=== PATIENT | female | born 1955 | race Asian ===

== ENCOUNTER 2017-11-02 19:14 | Emergency (ER) | payer OTHER ==
[~2017-11-02] VITALS: Ht 149.9 cm; Wt 57.2 kg
[2017-11-02] MEDS ORDERED: Morphine Sulfate 4mg/ml Inj IVP ONE (19:15)
[2017-11-02] MEDS ORDERED: Isovue-300 100ml vial INJ PRN (19:15)
[2017-11-02] MEDS ORDERED: Isovue-370 150ml vial INJ PRN (19:15)
--- NOTE | 2017-11-02 19:27 | Emergency Room Report ---
History of Present Illness General Chief Complaint: Dyspnea/Respdistress Source: Patient, EMS Present Illness HPI History of breast cancer in remission reports left-sided chest pain left lower quadrant abdominal pain, reports both achy and moderate intensity, the chest pain is worse with taking deep breaths, she also reports sensation of nausea and vomiting one episode prior to arrival. Fevers, but does report severe fatigue. She has urinary complaints, diarrhea, leg swelling, leg pain, but she does admit that she has missed her insulin dose yesterday. She generally feels fatigued and no energy. She denies any recent bleeding, melanotic stools, vomiting blood. Allergies: Coded Allergies: No Known Allergies (Unverified , 11/02/17) Patient History Past Medical History: see triage record Last Menstrual Period: NA Reviewed Nursing Documentation: PMH: Agreed; PSxH: Agreed Nursing Documentation-PMH Past Medical History: No History, Except For Hx Hypertension: Yes Hx Diabetes: Yes Hx Cancer: Yes - breast Cx. Lumpectomy left side. Review of Systems All Other Systems: negative except mentioned in HPI Physical Exam Vital Signs Date Time Temp Pulse Resp B/P (MAP) Pulse Ox O2 Delivery O2 Flow Rate FiO2 11/02/17 19:07 98.5 81 20 149/77 96 Room Air 98.4 Sp02 EP Interpretation: reviewed, normal General Appearance: no apparent distress, alert, non-toxic Head: normocephalic Eyes: bilateral eye normal inspection, bilateral eye PERRL, bilateral eye EOMI ENT: normal ENT inspection, hearing grossly normal, normal pharynx, no angioedema, normal voice, moist mucus membranes Neck: normal inspection, full range of motion, supple, supple/symm/no masses Respiratory: chest non-tender, lungs clear, normal breath sounds, chest symmetrical, palpation of chest normal Cardiovascular #1: normal peripheral pulses, regular rate, rhythm Cardiovascular #2: 2+ radial (R), 2+ radial (L), 2+ dorsalis pedis (R), 2+ dorsalis pedis (L) Gastrointestinal: normal inspection, soft, no mass, non-distended, no guarding , no rebound, tenderness - Left lower quadrant tender Rectal: deferred Genitourinary: normal inspection, no CVA tenderness Musculoskeletal: back normal, gait/station normal, normal range of motion, non- tender, no calf tenderness Neurologic: alert, responsive, cuff slitter III-XII nml as tested, motor strength/tone normal, sensory intact, speech normal Psychiatric: judgement/insight normal, memory normal, mood/affect normal, no suicidal/homicidal ideation Skin: normal color, no rash, warm/dry, normal turgor Lymphatic: no adenopathy Medical Decision Making Diagnostic Impression: Primary Impression: Dyspnea Additional Impression: Chest pain ER Course Patient with signs and symptoms concerning for diverticulitis, also possibly PE given her breast cancer history and respirophasic nature of chest pain with shortness of breath. She was given IV fluids, Zofran, morphine. EKG does not reveal evidence for acute coronary syndrome. patient has never had a colonoscopy, but we will obtain a CT abd/pelvis to evaluate for diverticulitis also CT angio chest for possible PE. Labs are normal other than slightly low K+ level, which was given to patient as 40mEq PO KCl, but she is pending CT scans. Patient accepted in transfer to [facility] by Dr. Mo for chest pain evaluation, but then I was given info for Dr. Willis at [facility] and spoke to him, he agreed to take the patient in transfer. EKG Diagnostic Results EKG Time: 19:08 EP Interpretation: no st-t changes, no TWI's Rate: normal Rhythm: NSR ST Segments: no acute changes ASA given to the pt in ED: No Rhythm Strip Diag. Results Rhythm Strip Time: 19:26 EP Interpretation: yes Rate: 86 Rhythm: NSR, no PVC's, no ectopy Chest X-Ray Diagnostic Results Chest X-Ray Diagnostic Results : Chest X-Ray Ordered: Yes # of Views/Limited/Complete: 1 View Indication: Chest Pain EP Interpretation: Yes Interpretation: no consolidation, no effusion, no pneumothorax, no acute cardiopulmonary disease Impression: No acute disease Electronically Signed by: Michael Ogden MD CT/MRI/US Diagnostic Results CT/MRI/US Diagnostic Results #1: Imaging Test Ordered: cta chest CT/MRI/US Diagnostic Results #2: Imaging Test Ordered: ct abd/pelvis w/ iv contrast Last Vital Signs Date Time Temp Pulse Resp B/P (MAP) Pulse Ox O2 Delivery O2 Flow Rate FiO2 11/02/17 19:07 98.5 81 20 149/77 96 Room Air 98.4 Disposition: XFER SHT-TRM HOSP Admit Decision Time: 20:22 Condition: Stable Signed Out To: [facility] Nov 02, 2017 19:27
[2017-11-02 20:03] VITALS: BP 149/77
[2017-11-02 20:13] LABS: BASOPHILS % (AUTO) 1.1 % (0.0-2.0); EOSINOPHILS % (AUTO) 3.5 % (0.0-3.0); HEMATOCRIT 34.6 % (37.0-47.0); HEMOGLOBIN 11.6 G/DL (12.0-16.0); LYMPHOCYTES % (AUTO) 28.6 % (20.0-45.0); MEAN CORPUSCULAR VOLUME 97 FL (80-99); MONOCYTES % (AUTO) 7.5 % (1.0-10.0); NEUTROPHILS % (AUTO) 59.3 % (45.0-75.0); PLATELET COUNT 260 K/UL (150-450); RED BLOOD COUNT 3.55 M/UL (4.20-5.40); RED CELL DISTRIBUTION WIDTH 13.1 % (11.6-14.8); WHITE BLOOD COUNT 6.2 K/UL (4.8-10.8)
[2017-11-02 20:36] LABS: ANION GAP 8 mmol/L (5-15); BLOOD UREA NITROGEN 28 mg/dL (7-18); CALCIUM 9.6 MG/DL (8.5-10.1); CARBON DIOXIDE 30 MMOL/L (21-32); CHLORIDE 99 MMOL/L (98-107); CREATININE 1.3 MG/DL (0.55-1.30); POTASSIUM 3.1 MMOL/L (3.5-5.1); SODIUM 137 MMOL/L (136-145)
[2017-11-02 20:45] LABS: APPEARANCE,URINE CLEAR; BILIRUBIN, URINE NEGATIVE (NEGATIVE); COLOR,URINE PALE YELLOW; GLUCOSE, URINE (UA) 2+ (NEGATIVE); KETONES,URINE NEGATIVE (NEGATIVE); LEUKOCYTE ESTERASE ,URINE NEGATIVE (NEGATIVE); NITRITE,URINE NEGATIVE (NEGATIVE); PH,URINE 6 (4.5-8.0); PROTEIN,URINE NEGATIVE (NEGATIVE); UROBILINOGEN,URINE NORMAL MG/DL (0.0-1.0)
[2017-11-02 20:47] LABS: ALANINE AMINOTRANSFERASE 48 U/L (12-78); ALBUMIN 3.5 G/DL (3.4-5.0); ALBUMIN/GLOBULIN RATIO 0.9 (1.0-2.7); ALKALINE PHOSPHATASE 77 U/L (46-116); ASPARTATE AMINO TRANSFERASE 48 U/L (15-37); BILIRUBIN,TOTAL 0.5 MG/DL (0.2-1.0)
[2017-11-02 22:17] VITALS: BP 132/72
[2017-11-02 22:54] VITALS: BP 132/72
--- NOTE | 2017-11-03 09:20 | Diagnostic Imaging Report ---
Indication: Abdominal pain Technique: Continuous helical transaxial imaging of the abdomen and pelvis was obtained from the lung bases to the pubic symphysis during intravenous contrast administration. Coronal 2-D reformats were also obtained. Study obtained in a Siemens sensation [address] Automatic Exposure Control was utilized. Total Dose length Product (DLP): 972.[address] Dose Index Volume (CTDIvol): 15.74,11.29 mGy Comparison: None Findings: Lung bases are clear. Small epigastric hernia containing fat demonstrated. The liver is hypodense consistent with fatty infiltration. In the area of the gallbladder fossa there is a hypodensity that is somewhat ill-defined (for example image 29 of series 14). Follow-up and correlation with ultrasound suggested. Small nodular foci are demonstrated and clustered in the left upper quadrant abdomen. The spleen is not seen. These are likely small splenic nodules. The gallbladder, pancreas, adrenal glands appear unremarkable. The kidneys are unremarkable. The appendix is normal. Urinary bladder is mildly distended. Atrophic uterus noted. Diverticula noted within the colon. No definite diverticulitis appreciated. No free fluid, free air or evidence of bowel obstruction. Small umbilical hernia containing fat demonstrated. There is narrowing of several vacuum intervertebral discs and accompanying endplate osteophyte formation. Hypertrophied facet joints also demonstrated. IMPRESSION: Fatty liver. Small cluster splenic nodules in the left upper quadrant abdomen. The spleen is absent. Normal appendix Degenerative changes of the spine Sigmoid diverticulosis. Hypodensity in the liver near the gallbladder is indeterminate on this exam. Consider follow-up The CT scanner at [facility] is accredited by the [employer] and the scans are performed using dose optimization techniques as appropriate to a performed exam including Automatic Exposure control.
--- NOTE | 2017-11-03 09:29 | Diagnostic Imaging Report ---
Indication: Chest pain Technique: Continuous helical transaxial imaging of the chest was obtained from the thoracic inlet to the upper abdomen during rapid intravenous contrast administration. Arterial phase of enhancement obtained. Coronal 2-D reformats were also obtained and maximum intensity projection images in multiple planes. Study obtained in a Siemens sensation [address] Automatic Exposure Control was utilized. Total Dose length Product (DLP): 972.[address] Dose Index Volume (CTDIvol): 15.74,11.29 mGy Comparison: None Findings: The pulmonary artery is well opacified and shows no filling defects. There is no adenopathy, pleural or pericardial effusions are identified. There is no aortic dissection or aneurysm identified within the chest. The lungs are clear with the exception of some mild basilar atelectasis.. Visualized part of the upper abdomen is unremarkable. Impression: Negative CTA of the chest. [facility] has communicated the preliminary results to the Emergency Department. Their findings are largely concordant with this report. The CT scanner at [facility] is accredited by the [employer] and the scans are performed using dose optimization techniques as appropriate to a performed exam including Automatic Exposure control.
--- NOTE | 2017-11-03 11:46 | Diagnostic Imaging Report ---
Indication: Chest pain Comparison: None A single view chest radiograph was obtained. Findings: Cardiomediastinal appearance is within normal limits for age. Pulmonary vascularity is appropriate. The diaphragmatic contour is smooth and costophrenic angles are sharp. No pleural effusions are identified. The bones are unremarkable. Impression: No acute findings
--- NOTE | 2017-11-05 00:38 | Cardiology Report ---
APPROVED REPORT EKG Measurement Heart [id number] Sinus rhythm with 1st degree AV block Minimal voltage criteria for LVH, may be normal variant Borderline ECG
== END 2017-11-02 22:56 | disposition short-term general hospital (02) ==
LOC: EDBD 19:14 → EMR 19:24
DX: R06.00 Dyspnea, unspecified (principal); R07.9 Chest pain, unspecified; R10.32 Left lower quadrant pain; Z85.3 Personal history of malignant neoplasm of breast; R53.83 Other fatigue; I10 Essential (primary) hypertension; E11.9 Type 2 diabetes mellitus without complications; Z79.4 Long term (current) use of insulin; Z98.890 Other specified postprocedural states
CPT/HCPCS: 36415; 71045; 71275; 74177; 80053; 81003; 83690; 83880; 84484; 85025; 93005; 96361; 96374; 96375; 99284; J2270; J2405; Q9967; 96360; J8499